=== PATIENT | female | born 1980 | race Caucasian/White ===

== ENCOUNTER 2020-03-15 15:47 | Emergency (ER) | payer BC, OTHER ==
[2020-03-15 16:01] VITALS: BP 120/73; PULSE 67; TEMP 97.8; BMI 22.6
[2020-03-15] MEDS ORDERED: DIPHTH,PERTUSS(ACELL),TET 0.5 ML DISP.SYRIN IM ONE ×2 (16:20→16:29)
[2020-03-15 17:28] LABS: BASO % 0.5 % (0-2.0); EOS % 1.8 % (0-4.5); HEMATOCRIT 41.9 % (32.4-45.2); HEMOGLOBIN 13.6 GM/dL (10.7-15.3); MCH 29.8 pg (25.7-33.7); MCHC 32.4 g/dl (32.0-36.0); MEAN CELL VOLUME 91.8 fl (80-96); MEAN PLT VOLUME 9.4 fl (7.5-11.1); MONO % 4.5 % (3.8-10.2); NEUT % 51.2 % (42.8-82.8); PLATELET COUNT 260 K/MM3 (134-434); RBC 4.56 M/mm3 (3.60-5.2); RDW 12.9 % (11.6-15.6); WHITE BLOOD COUNT 8.6 K/mm3 (4.0-10.0)
[2020-03-15 17:47] LABS: POTASSIUM 3.9 mmol/L (3.5-5.1)
[2020-03-15 17:49] LABS: ALBUMIN 3.8 g/dl (3.4-5.0); BLOOD UREA NITROGEN 14.6 mg/dL (7-18); CALCIUM 8.9 mg/dL (8.5-10.1)
[2020-03-15 17:53] LABS: CREATININE 0.8 mg/dL (0.55-1.3)
[2020-03-15 17:54] LABS: BILIRUBIN,TOTAL 0.2 mg/dL (0.2-1); TOT PROT 7.4 g/dl (6.4-8.2)
[2020-03-15 18:46] LABS: HIV INTERPRETATION NEGATIVE (NEGATIVE)
== END 2020-03-15 17:07 | disposition home or self-care (01) ==
LOC: JERFT 15:47
PROC: 3E0234Z Introduction of Serum, Toxoid and Vaccine into Muscle, Percutaneous Approach (ICD-10-PCS; principal; 2020-03-15)
DX: Z77.21 Contact with and (suspected) exposure to potentially hazardous body fluids (principal)
CPT/HCPCS: 36415; 80053; 85025; 86317; 86704; 86706; 86803; 87340; 87389; 90715; 99284-25